=== PATIENT | female | born 1980 | race Caucasian/White ===

== ENCOUNTER → 2020-09-07 | Outpatient (CLI) | payer OTHER ==
[~2020-09-07] MED LIST: BENZ100A PO; BIRTH CONTROL PILL; BUTASPCAFT PO; CEPH500 PO; CYCL10 PO; Ceftin500 MG PO; HYDACE5; METF500; MISO100; NAPR500; NORT10 PO; OMEP20ER; OXYACE5T PO; PROACE100; PROC10 PO; PROG100; PROM25 PO; PSEU120ER PO; RIZATRIPTAN10 M1 PO; TOPI50 PO; Ultram50 MG PO; Zithromax250 MG PO; Zofran Odt4 MG SL
[2020-09-09 13:59] LABS: CORONAVIRUS (COVID19) CSH-NRL Negative (Negative)
== END | disposition home or self-care (01) ==
LOC: LAB SHORT 18:41 → LAB 18:41
PROVIDERS: Student in an Organized Health Care Education/Training Program
DX: Z20.828 Contact with and (suspected) exposure to other viral communicable diseases (principal)
CPT/HCPCS: U0003

== ENCOUNTER → 2022-01-26 | Outpatient (CLI) | payer OTHER | END | disposition home or self-care (01) | LOC: LAB SHORT 09:15 | DX: M54.50 Low back pain, unspecified (principal) | CPT/HCPCS: 87086 ==

== ENCOUNTER → 2022-08-10 | Outpatient (CLI) | payer OTHER | END | disposition home or self-care (01) | LOC: LAB 12:33 → LAB SHORT 12:33 | DX: N39.0 Urinary tract infection, site not specified (principal) | CPT/HCPCS: 87086 ==

== ENCOUNTER → 2022-12-28 | Outpatient (CLI) | payer OTHER | END | disposition home or self-care (01) | LOC: LAB SHORT 12:20 → LAB 12:20 | DX: Z51.81 Encounter for therapeutic drug level monitoring (principal); Z79.899 Other long term (current) drug therapy | CPT/HCPCS: G0480 ==

== ENCOUNTER 2024-03-05 04:36 | Day surgery (SDC) | payer OTHER ==
[2024-03-05 08:23] VITALS: BP 139/100
== END 2024-03-05 09:28 | disposition home or self-care (01) ==
LOC: ATC 04:36
DX: D50.0 Iron deficiency anemia secondary to blood loss (chronic) (principal); E78.2 Mixed hyperlipidemia; E66.01 Morbid (severe) obesity due to excess calories